=== PATIENT | male | born 1960 | race Caucasian/White ===

== ENCOUNTER → 2021-02-13 09:33 | Outpatient (CLI) | payer OTHER, SELFPAY ==
[2021-02-13 10:33] LABS: Add Manual Diff / Slide Review NO; Basophils Absolute Auto 100 /uL (0-100); Basophils Percent Auto 0.9 % (0-2); Eosinophils Absolute Auto 200 /uL (0-450); Hemoglobin 14.6 g/dL (13.5-17.5); Lymphocytes Absolute Auto 1800 /uL (1100-4500); Lymphocytes Percent Auto 31.1 % (25-40); Mean Corpuscular HGB Conc 33.9 % (30-36); Mean Corpuscular Hemoglobin 31.4 PG (26-34); Mean Corpuscular Volume 92.5 fL (80-100); Monocytes Absolute Auto 500 /uL (0-900); Monocytes Percent Auto 9.4 % (3-14); Neutrophils Absolute Auto 3100 /uL (1500-7000); Neutrophils Percent Auto 55.6 % (50-75); Platelet Count 234 X10^3/uL (150-400); Red Blood Cell Count 4.65 X10^6/uL (4.5-5.9); Red Cell Distribution Width 13.9 % (11.6-14.8); White Blood Cell Count 5.7 X10^3/uL (4.5-11.0)
[2021-02-13 11:49] LABS: Blood Urea Nitrogen 16 mg/dL (9-20); Calcium 9.5 mg/dL (8.4-10.2); Carbon Dioxide 26 mmol/L (22-32); Chloride 104 mmol/L (98-107); Estimated Glomerular Filt Rate > 60.0 mL/min (>60); Glucose 100 mg/dL (80-110); HEMOLYSIS < 15 (0-50); Potassium 4.4 mmol/L (3.4-5.1); Sodium 137 mmol/L (137-145)
== END ==
PROVIDERS: PCP Family Medicine; Referring Provider Orthopaedic Surgery Orthopaedic Surgery of the Spine; Visit Provider Orthopaedic Surgery Orthopaedic Surgery of the Spine
DX: Z01.818 Encounter for other preprocedural examination (principal); Z01.812 Encounter for preprocedural laboratory examination
CPT/HCPCS: 36415; 80048; 85025; 93005; 93010

== ENCOUNTER → 2021-03-01 11:16 | Outpatient (CLI) | payer OTHER, SELFPAY ==
[2021-03-01 14:05] LABS: COVID19 -Nasal RAPID Negative (Negative)
== END ==
PROVIDERS: PCP Family Medicine; Visit Provider Physician Assistant
DX: Z20.822 Contact with and (suspected) exposure to COVID-19 (principal)
CPT/HCPCS: 87635

== ENCOUNTER 2021-03-03 11:33 | Day surgery (SDC) | payer OTHER, SELFPAY ==
[2021-02-23 08:36] VITALS: BMI 28.8
[2021-03-03] VITALS (14 sets, daily range): BP systolic 127–158; BP diastolic 86–110; PULSE 89–117; RESP 9–18; TEMP 36.2–37.1; O2SAT 93–99; BMI 28.8
[2021-03-03] MEDS: LACTATED RINGERS 1,000 ML 42 ML IV ×2 (12:51→16:44)
--- NOTE | 2021-03-03 14:14 | PM.PREOP ---
Pre-operative Note COVID-19 COVID-19 status: Negative Result date/Date tested (Pos, Neg/Pending): 03/01/21 Interval Note History & Physical reviewed/Exam performed by Physician: Yes Changes to H&P: No
[2021-03-03] MEDS: CEFAZOLIN 1 GM VIAL 2 GM IV ×2 (15:15→23:45)
--- NOTE | 2021-03-03 15:32 | SUR.OPER ---
Prone on spine table, head in foam head support, padded chest and pelvic supports, gel pad at knees, lower legs supported by pillows; nipples, genitalia and toes free of pressure, arms secured on foam padded arm boards at <90 degrees abduction. Tape over blanket at thigh secured to table.
[2021-03-03] MEDS: BUPIVACAINE LIPOSOME 266 MG/20 ML VIAL INJ (15:52)
[2021-03-03] MEDS: BUPIVACAINE 0.25% (PF) VIAL 30 ML INJ (15:53)
[2021-03-03] MEDS: EPINEPHrine 1 MG/ML SUBCUT (15:54)
--- NOTE | 2021-03-03 18:17 | DI.RAD.S_ITS ---
PROCEDURE: XR LUMBAR SPINE 2-3V INDICATIONS: L3-4 TLIF TECHNIQUE: 2 intraoperative fluoroscopic spot films were obtained COMPARISON: None. FINDINGS: Low resolution intraoperative spot films show L3-4 interbody cage graft and associated posterior stephen and screw instrumentation in good position. IMPRESSION: Fluoroscopic guidance Approved by: Bandar Shen M.D. on 03/03/2021 at 17:25
--- NOTE | 2021-03-03 18:27 | P.OP_ITS ---
Operative Date/Time/Diagnoses Date of procedure: 03/03/21 Time of procedure: 15:00 Pre-op diagnosis: 1. L3-4 spinal stenosis with neurogenic claudication 2. L3-4 spondylosis with radiculopathy Post-op diagnosis: same Procedure & Clinicians Procedure: 1. L3-4 Postero-lateral and posterior interbody fusion 2. L3-4 interbody cage placement. 3. L3-4 decompressive laminectomy with bilateral facetecomies 4. L3-4 Posterior non-segmental instrumentation 5. [place] of bone marrow from iliac crest 6. Utilization of microsurgical technique and surgical loupes Same procedure as scheduled: Yes Indications: Patient has been having chronic back pain and worsening lumbar radiculopathy. Patient failed multiple conservative management with worsening pain weakness and numbness in her lower extremity. Patient has been having difficulty performing activity of daily living. After discussing risks benefits of treatment options, patient elected proceed with surgery. Surgeon: Jose Lopez [employer] Tester: Kirill Egan Click Yes if Unassisted: No Anesthesia Type: General Operative Notes Closure Type: primary Specimen(s): none sent Prosthetic devices, grafts, tissues, transplants, or devices: Globus revolve screws, Rise cage Estimated Blood Loss (mL): 100 Blood products transfused: none Procedure in detail: Patient was seen in the preoperative area. Risks and benefits of the surgery was discussed with the patient. Informed consent was obt ained from the patient and placed in the chart. Surgical site was marked. Patient was taken to the operative room. General anesthesia was administered. Prophylactic antibiotic was given to the patient less than 30 min before the incision was made. Patient was placed into a prone position on the Terrence table. Patient's back was then prepped and draped in the sterile fashion. Time- out was performed at this time. Using AP and lateral C-arm imaging the interval between L3-4 was identified and marked on patient's back. A 2 inch incision 2 in from midline was made on the right side first. The fascia was incised in line with skin incision. Globus MARS retractors was placed inside the incision and docked onto the L3 lamina. Using microsurgical technique and surgical loupes, a L3 laminectomy and L3-4 facetectomy was performed using a Kerrison rongeur. The disc space at L3-4 was identified. Patient was found to have large osteophytes causing central and foraminal stenosis which was fully decompressed after the laminectomy and facetectomy was completed. The decompression rendered the L3-4 level grossly unstable and required a fusion procedure at the same time. And a total diskectomy was performed at L3-4 level. The endplates were decorticated using a rasp and shaver. The total diskectomy and decortication was performed at L3-4 level in order to to accomplish a L3-4 fusion. The local bone from the laminectomy and facetectomy was saved for local bone grafting. After the total diskectomy and decortication was completed, Trifecta bone graft material was combined with local bone that was harvested earlier. At this time, a separate skin is incision was made over the iliac crest. A Jamshidi needle was inserted into the iliac crest through a separate skin incision. 5 cc of bone marrow aspiration was obtained through the separate skin incision using a Jamshidi needle from the iliac crest. The bone marrow aspiration was combined with local bone and the Trifecta bone grafting material. The bone grafting material was placed into the L3-4 interbody space along with a expandable cage. The cage was expanded to its maximum height using the torque limiting screwdriver. At this time a mirror image incision was made on the left side. The fascia was incised in line with the skin incision. Globus MARS retractor was inserted and docked onto the L3-4 posterolateral gutter. Using the power drill, posterior- lateral decortication was performed at L3-4 level until bleeding cortical bone was identified. The remaining bone grafting material was placed into the L3-4 posterior lateral gutter he order to accomplish posterolateral fusion at the L3-4 level. Using the double C-arm technique, pedicle screws were placed into the L3-4 pedicles bilaterally. This was done by placing the Jamshidi needle into the pedicles, then placing the guidewires over the Jamshidi needle, and finally placing the cannulated screws over the guidewires bilaterally. After the pedicle screws were placed, 2 titanium rods was locked into the heads of the pedicle screws using locking caps and torque limiting screwdriver. After all the hardware was placed, and confirmed with AP and lateral C-arm imaging, the wound was then irrigated with sterile normal saline and packed with Ray-Vianney gauze for 3 min to accomplish hemostasis. After the gauze was removed the deep fascia was closed with #1 Vicryl suture. The subcutaneous layer was closed with 2-0 Vicryl. The skin was closed with skin tia. Patient tolerated the procedure well. There were no complications. Complications: none Post-operative Condition: stable Disposition: PACU Plan for aftercare: Admit to inpatient hospital
[2021-03-03] MEDS: HYDROMORPHONE 2 MG INJ IV ×2 (18:44→18:58)
[2021-03-03] MEDS: OXYCODONE IR 5 MG TABLET PO (19:07)
--- NOTE | 2021-03-03 20:12 | SUR.PHASEI ---
Pt arrived to PACU airway self maintained, )2 2/l nasal cannula placed on pt. Pt hypertensive and tachycardic, Dr. Lackey medicated pt with labetalol and some propofol, BP and HR down to baseline admit VS. Pt tolerated ice chips and applesauce with no nausea. Pt medicated with hydromorphone and oxycodone. Pt transported up to room 217 on 2/l nasal cannula, pt left with Lisa in stable condition. Bed low, locked and SCD's on. Dressing to back c/d/i.
[2021-03-03] MEDS: SODIUM CHLORIDE 0.9% 1,000 ML 100 ML IV (21:20)
[2021-03-03] MEDS: SENNOSIDES 8.6 MG TABLET 17.2 MG PO (21:21)
[2021-03-03] MEDS: DOCUSATE 100 MG CAPSULE PO (21:21)
--- NOTE | 2021-03-04 00:48 | PC.NURSE ---
Patient refusing majority of assessment. Patient refusing education on reasoning and importance of assessment after major surgery. Will continue to monitor.
[2021-03-04 05:19] VITALS: BP 154/101; PULSE 95; RESP 18; TEMP 36.3; O2SAT 100
[2021-03-04] MEDS: OXYCODONE IR 5 MG TABLET 10 MG PO (05:23)
[2021-03-04] MEDS: ACETAMINOPHEN 325 MG TABLET 650 MG PO (05:23)
[2021-03-04 07:05] LABS: Hemoglobin 14.5 g/dL (13.5-17.5)
[2021-03-04] MEDS: DOCUSATE 100 MG CAPSULE PO (07:59)
[2021-03-04] MEDS: CEFAZOLIN 1 GM VIAL 2 GM IV (07:59)
[2021-03-04 08:12] VITALS: BP 132/100; PULSE 95; RESP 18; TEMP 36.4; O2SAT 99
--- NOTE | 2021-03-04 09:35 | OT.IP.EVAL ---
Current Diagnoses Spondylolisthesis, lumbar region (03/03/21) Spinal stenosis, lumbar region without neurogenic claudication (03/03/21) Surgery Performed Operation Date: 03/03/21 13:15 Actual Procedures p L3-4 TLIF - Jose Lopez MD Past Medical History (Last Updated 02/23/21 @ 09:09 by Alisa Urena, RN) Borderline high cholesterol High blood pressure Hx of bursectomy (~2004) Hx of tonsillectomy Sciatica Sinus drainage (2003) Spinal stenosis Spondylolisthesis Surgical History (Last Updated 02/23/21 @ 09:09 by Alisa Urena RN) Hx of bursectomy (~2004) Hx of tonsillectomy Occupational Therapy Inpatient Evaluation/Re-Eval M1 PT/OT-IP Prior Functional Status Start: 03/04/21 10:03 Freq: NEEDED Status: Active Protocol: Document 03/04/21 10:03 [facility] (Rec: 03/04/21 10:26 [facility] [id number]) Medical Review Prior Functional Status Medical History Reviewed Yes Communication Independent. Mobility and Gait Pt states independent with mobility and did not use a device. Activities of Daily Living and IADL's Pt states would take him longer to do ADL and IADl needs due to his back pain. Social History Household Members spouse Living Arrangements House Number of Floors (Floors) 3 or More Floors Number of Stairs To Enter/Railing? Pt has a threshold to get into his house and able to stay on the main level. 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 M2 OT-IP Current Condition Start: 03/04/21 10:03 Freq: Status: Active Protocol: Document 03/04/21 10:03 [facility] (Rec: 03/04/21 10:26 [facility] [id number]) Occupational Therapy Current Condition Current Condition Evaluation Date 03/04/21 Treatment Diagnosis S/P L3-4 TLIF Diagnosis Onset Date 03/03/21 Post Operative Precautions Lumbar Precautions Log Roll,No Twisting,Limit Bending,Lifting Restriction of 10 lbs,Gait Belt above Incisional Area M3 OT- IP Subjective and Pain Start: 03/04/21 10:03 Freq: Status: Active Protocol: Document 03/04/21 10:03 [facility] (Rec: 03/04/21 10:26 [facility] [id number]) OT- Subjective Occupational Therapy Visit Type Type Initial Evaluation Visit Start Time 08:50 Visit Stop Time 09:35 Total Visit Minutes 45 Occupational Therapy Visit Comments Patient Comments Pt willing to get up for OT eval. Patient/Caregiver Goals To go home so able to be home from his birthday tomorrow. OT Pain Assessment Pain When Pain Assessed At Rest Pain Present Pain Present Denied Pain M4 OT- IP ADL's Start: 03/04/21 10:03 Freq: Status: Active Protocol: Document 03/04/21 10:03 [facility] (Rec: 03/04/21 10:26 [facility] [id number]) OT XDA-Vpuv-Soaumtn Comments OT Self-Feeding Comments Pt having no appetite at this time. OT ADL-Grooming Comments OT Grooming Comments Pt did not want to perform at this time. OT ADL-Oral Care Comments Oral Care Comments Not performed. OT ADL-Dressing General Eval Lower Body Dressing Ability Moderate Assistance Comments OT Dressing Comments Able to show pt use of income tax auditor and sock aid to assist to do his LB dressing needs more independently. Pt has a wide foot and therefore would need a wider sock aid. Pt states that at this time just will have his assist with his needs. OT ADL-Toileting Comments OT Toileting Comments Pt not having to use the toilet at this time. Pending on how pt is moving, educated to lean over to the side to wipe or stand with FWW. OT ADL-Bathing Comments OT Bathing Comments Not performed. Suggested may beneficial to get a shower chair for home use. M5 OT- IP IADL's Start: 03/04/21 10:03 Freq: Status: Active Protocol: Document 03/04/21 10:03 [facility] (Rec: 03/04/21 10:26 [facility] [id number]) OT-Instrumental Activities of Daily Living Home Safety Awareness Awareness of Need for Assistance at Home Good Awareness Ability to Problem Solve Emergency Able to Problem Solve Situations Medication Management Medication Management Comments Pt a bit groggy and states will be able to assist pt for all needs as needed. Money Management Money Management Comments Pt a bit groggy and states will be able to assist pt for all needs as needed. Meal Preparation Meal Preparation Comments Pt a bit groggy and states will be able to assist pt for all needs as needed. Superintendent Terminal Superintendent Terminal Comments Pt a bit groggy and states will be able to assist pt for all needs as needed. M6 OT- IP Functional Cognition Start: 03/04/21 10:03 Freq: Status: Active Protocol: Document 03/04/21 10:03 [facility] (Rec: 03/04/21 10:26 [facility] [id number]) Cognitive Factors Limiting Selfcare Function Cognitive Ability Level of Alertness Alert Patient Orientation Name,Age,Birthday,Month,Date, Year,Day of Week,Place, Situation Attention Span Ability Capable of Focused Attention, Capable of Sustained Attention Ability to Follow Commands Able to Follow One Step Commands Safety Awareness Decreased Ability to Apply Precautions,Underestimates Need for Assistance Cognitive Comments Cognitive Assessment Comments Pt a bit impulsive and needing cues to slow down. Pt needing cues to follow his back precautions and for new learning of log rolling for bed mobility needs. Initially pt trying to sit up into long sitting while trying to get out of bed. Emphasized to pt to do log rolling instead which would be better on putting less pressure on his back. OT- Vision and Hearing OT- Hearing Assessment OT- Hearing Assessment WFL OT- Vision Assessment Visual Acuity Glasses For Reading M7 OT- IP Mobility and Balance Start: 03/04/21 10:03 Freq: Status: Active Protocol: Document 03/04/21 10:03 [facility] (Rec: 03/04/21 10:26 [facility] [id number]) OT- Bed Mobility Assessment Rolling Type of Rolling Roll to Left Level of Assistance Standby Assistance Supine to Sit Supine to Sit Assist Standby Assistance Sit to Supine Sit to Supine Assist Minimal Assistance OT-Transfer Assessment Comments Mobility Comments Pt supine BP 162/107, sitting 172/107, after sitting for a few minutes 168/106, and after back in bed 160/115 and after 10 minutes BP in supine 148/ 110. Able to notify nurse and also spoke to the Dr. Torres who was just coming in to check on the pt. OT- Gait Assessment Comments Gait Ability Comments Not at this time due to high BP. OT- Balance Assessment Sitting Balance and Reactions Static Sitting Balance Ability Normal Dynamic Sitting Balance Ability Good M8 OT- IP Objective Assessments Start: 03/04/21 10:03 Freq: Status: Active Protocol: Document 03/04/21 10:03 [facility] (Rec: 03/04/21 10:26 [facility] [id number]) OT Gross Range of Motion Upper Extremity Range of Motion Assessment Within Functional Limits OT Strength Upper Extremity Strength Assessment Within Functional Limits OT-Muscle Tone Assessment Muscle Tone WNL Yes M9 OT- IP Assessment and Plan Start: 03/04/21 10:03 Freq: Status: Active Protocol: Document 03/04/21 10:03 [facility] (Rec: 03/04/21 10:26 [facility] [id number]) OT Summary Assessment and Plan Potential Rehabilitation Potential Good Analytic Complexity at Evaluation Moderate Summary OT Impairments Pain,Functional Mobility, Dressing,Toileting,Bathing, Toilet Transfers,Shower Transfers,Activity Tolerance Progress Towards Goals Slow Progress due to Pain,Slow Progress due to Medical Issues Assessment Summary Pt MOD complexity and main barriers are high BP, not feeling well per pt due to pain medications, and needing safety cues to follow his back precautions. Pt was able to do bed mobility to get out of the bed on his own after education to get out of the bed and then needing MODA to help get back into bed. Nursing notified of high BP. Pending medical status and possible caregiver training with pt to go home versus skilled rehab. Goals Grooming Goal Independent Dressing Goal Independent Toileting Goal Independent Bathing Goal Independent Toilet Transfer Goal Independent Shower Transfer Goal Independent Patient/Caregiver Education Goal Demonstrate Post-Op Precautions,Caregiver Independent Assisting Patient Days to Meet Goals 7 Frequency of Treatment Frequency Of Treatment Once a Day Treatment Plan OT Treatment Plan ADL Training,Functional Cognition Training,Functional Mobility,Patient/Family Education,Discharge Planning Other Treatment Recommendations and Next Shower if appropriate and Treatment Focus caregiver training Discharge Recommendations OT Discharge Recommendations Home with Assistance,SNF Rehab ,Home vs SNF Other Discharge Recommendations Pending medical status and caregiver training. Most likely home with assist versus SNF. Home Equipment Needs Shower chair Transportation Needs at Discharge Wheelchair/Cabulance
--- NOTE | 2021-03-04 10:10 | P.PN_ITS ---
Subjective Subjective Date Patient Seen: 03/04/21 Time Patient Seen: 10:11 Interval history: The patient reports he is having some discomfort as expected postoperatively. He very much wants to go home. He is hypertensive at baseline but typically does not run blood pressures as high as he has been running in the hospital. Exam Vital Signs (past 8 hours): - 03/04/21 05:19 03/04/21 08:12 Temperature 97.4 F L 97.6 F Pulse Rate 95 H 95 H Respiratory Rate 18 18 Blood Pressure 154/101 H 132/100 H Pulse Oximetry 100 99 Oxygen Delivery Method Nasal Cannula Oxygen Flow Rate 0 Narrative Exam Narrative: Lying comfortably in bed. Light touch and motion intact in both lower extremities. Calves soft. Objective Labs Result Diagrams: 03/04/21 06:47 Labs: Laboratory Results - last 24 hr 03/04/21 06:47 Hgb 14.5 Hct 44.0 PFSH Medical History (Updated 02/23/21 @ 09:09 by Alisa Urena RN) Borderline high cholesterol High blood pressure Sciatica Sinus drainage (2003) Spinal stenosis Spondylolisthesis Surgical History (Updated 02/23/21 @ 09:09 by Alisa Urena RN) Hx of bursectomy (~2004) Hx of tonsillectomy Social History household members: spouse Smoking Status: Former smoker alcohol intake: current Assessment & Plan Post-op Postoperative Procedures: Procedures Operation Date: 03/03/21 13:15 Actual Procedure Side Surgeon p L3-4 TLIF Jose Lopez MD Postoperative day: 1 Postoperative status: doing well and other (Persistent hypertension) Postoperative status narrative: Stable postoperative day 1 status post L3-L4 fus ion by Dr. Lopez with the exception of persistent hypertension. Postoperative plan: routine post-op care and other (Will consult hospitalist for hypertension) Quality VTE Deep Vein Thrombosis/Pulmonary Embolism Present on Admission: No
--- NOTE | 2021-03-04 10:18 | PT.IIE ---
Current Diagnoses Spondylolisthesis, lumbar region (03/03/21) Spinal stenosis, lumbar region without neurogenic claudication (03/03/21) Surgery Performed Operation Date: 03/03/21 13:15 Actual Procedures p L3-4 TLIF - Jose oLpez MD Medical History (Last Updated 02/23/21 @ 09:09 by Alisa Urena RN) Borderline high cholesterol High blood pressure Sciatica Sinus drainage (2003) Spinal stenosis Spondylolisthesis Physical Therapy Inpatient Evaluation/Re-Eval M1 PT/OT-IP Prior Functional Status Start: 03/04/21 10:03 Freq: NEEDED Status: Active Protocol: Document 03/04/21 10:18 AB (Rec: 03/04/21 12:04 AB [id number]) Medical Review Prior Functional Status Medical History Reviewed Yes Communication able to make needs known Mobility and Gait pt stated that he is independent with all mobilities and ambulation without AD Social History Household Members spouse Living Arrangements House Number of Floors (Floors) Two Floors Number of Stairs To Enter/Railing? pt stays on main level of the house no steps to enter Home Environment Standard Height Toilet,Walk in Shower Home Equipment Front Wheel Walker,Hand Held Shower Employment Status Retired M2 PT-IP Current Condition Start: 03/04/21 11:51 Freq: NEEDED Status: Active Protocol: Document 03/04/21 10:18 AB (Rec: 03/04/21 12:04 AB [id number]) Physical Therapy Current Condition Current Condition Evaluation Date 03/04/21 Treatment Diagnosis s/p L3-4 fusion/lami; difficulty in walking Onset Date 03/03/21 Precautions Lumbar Precautions Log Roll,No Twisting,Limit Bending,Lifting Restriction of 10 lbs,Gait Belt above Incisional Area M3 PT-IP Subjective Start: 03/04/21 11:51 Freq: NEEDED Status: Active Protocol: Document 03/04/21 10:18 AB (Rec: 03/04/21 12:04 AB [id number]) Subjective Physical Therapy Visit Type Type Initial Evaluation Visit Start Time 10:18 Visit Stop Time 11:05 Total Visit Minutes 37 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 of 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 0 Physical Therapy Visit Comments Patient Comments c/o nausea but agreed to do PT Therapy Pain Assessment Pain When Pain Assessed At Rest Pain Present Pain Present Pain Reported Location back Intensity 3 Scale Used Numeric (0 - 10) Pain Management Techniques Modification of Treatment,Re- positioning,Timing of Activity with Medications M4 PT-IP Mobility and Gait Start: 03/04/21 11:51 Freq: NEEDED Status: Active Protocol: Document 03/04/21 10:18 AB (Rec: 03/04/21 12:04 AB [id number]) PT-Bed Mobility Assessment Rolling Type of Rolling Log Rolling Level of Assist Standby Assistance Supine to Sit Supine to Sit Standby Assistance PT-Transfer Assessment Sit to and From Stand Sit to and from Stand Standby Assistance,1 Person Assistance,Use of Upper Extremities Equipment Transfer Assistive Device Gait Belt,Front Wheeled Walker Orthotic/Prosthetic Devices or Brace: No Transfers Transfer Destination Chair,Toilet Transfer Technique ambulated using FWW Transfer Ability Level of Assist Standby Assistance,Use of Upper Extremities Comments Mobility Comments reviewed back precautions and log roll. BP supine: 155/108. informed nurse and stated that the hospitalist will see the pt for high BP. pt initially c/o nausea but wanting to try to sit on EOB. Dr. Owens came in to see the pt. Checked back on pt. BP checked again: 155/90. pt completed log roll supine to sit SBA. pt was able to sit on EOB SBA. no c/o nausea or dizziness. BP: 158/113. completed sit to stand SBA and ambulated in room using FWW SBA ~ 60 ft. no complaints of dizziness/nausea. agreed to sit on chair. but pt requested to use the toilet. completed sit to stand from chair SBA and ambulated to the toilet using FWW SBA. pt stated that he needs to use the toilet for a while. call light positioned next to pt and instructed. pt has no other concerns. informed nurse that pt is using the toilet and will ask for assistance when ready. Gait Assessment Gait Gait Assistance Required: Standby Assistance Distance (Feet) 60 Able to Maintain Weight Bearing Status Yes During Gait Assistive Devices Assistive Device Gait Belt,Front Wheeled Walker Orthotic/Prosthetic Devices or Brace: No Gait Deviations General Gait Pattern Decreased Stride Length, Decreased Feet Clearance Factors Limiting Gait Function Factors Limiting Gait Function Decreased Activity Tolerance, Decreased Strength,Limited Range of Motion,Pain,Poor Balance PT-Balance Assessment Sitting Balance and Reactions Static Sitting Balance Ability Normal Dynamic Sitting Balance Ability Good Standing Balance and Reactions Static Standing Balance Ability Good Dynamic Standing Balance Ability Fair Device Used FWW M5 PT-IP Objective Assessments Start: 03/04/21 11:51 Freq: NEEDED Status: Active Protocol: Document 03/04/21 10:18 AB (Rec: 03/04/21 12:04 AB [id number]) Orientation Orientation/Cognition Level of Alertness Alert Orientation Name,Age,Birthday,Month,Date, Year,Day of Week,Place, Situation Language Function Ability No Deficits Noted Safety Awareness Decreased Safety Awareness Memory Description No Deficits Noted Gross Range of Motion Lower Extremity ROM Assessment Within Functional Limits Strength Lower Extremity Strength Assessment Within Functional Limits Coordination Assessment Gross Coordination Gross Coordination WNL Sensation Assessment Sensation Gross Sensation WNL Muscle Tone Muscle Tone WNL Yes M6 PT-IP Treatment Start: 03/04/21 11:51 Freq: NEEDED Status: Active Protocol: Document 03/04/21 10:18 AB (Rec: 03/04/21 12:04 AB [id number]) Physical Therapy Treatment Education Education Provided Precautions,Weight Bearing Status,Post-Op Packet,Safety M7 PT-IP Assessment and Plan Start: 03/04/21 11:51 Freq: NEEDED Status: Active Protocol: Document 03/04/21 10:18 AB (Rec: 03/04/21 12:04 AB [email or web address]) PT Summary Assessment and Plan Potential Rehabilitation Potential Good Status of Condition at Evaluation Evolving Summary Impairments Pain,ROM,Strength,Balance, Coordination,Sensation,Tone, Cognition,Bed Mobility, Transfers,Gait,Activity Tolerance Assessment Summary pt requiring SBA with mobility using FWW and will have his spouse to assist him at home as needed. pt may go home when medically stable. Goals Bed Mobility Goal Independent Transfer Goal Independent,Four Wheeled Walker Gait Goal Independent,Front Wheel Walker Gait Distance 200 Days to Meet Goals 5 Frequency of Treatment Frequency Of Treatment Twice a Day Treatment Plan Physical Therapy Treatment Plan Bed Mobility Training,Transfer Training,Gait Training, Therapeutic Exercise,Balance Retraining,Post Op Education, Discharge Planning,Hot or Cold Pack,Neuromuscular Re-ed, Coordination Retraining,Manual Therapy Precautions Lumbar Precautions Log Roll,No Twisting,Limit Bending,Lifting Restriction of 10 lbs,Gait Belt above Incisional Area Recommendations To Nursing Amount of Assist Needed Standby Assistance Discharge Recommendations PT Discharge Recommendations Home with Assistance Transportation Needs at Discharge Private Vehicle
--- NOTE | 2021-03-04 10:23 | CM.DANOTE ---
DCP: Case received, EMR reviewed and met with patient. , Agatha, was also at bedside. Introduced self and role. Was able to obtain information regarding patient's baseline activity status prior to his surgery. DCP assessment completed with information currently available. Patient is a 60 year old male who admitted yesterday morning to the care of the orthopedic team. PCP: Dr. Gandara. Payer: confirmed: [facility]. Patient came in to the hospital for a surgical procedure. He had L3-4 postero-lateral & posterior interbody fusion. Patient has had history of spinal stenosis. 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 Met with patient and spouse, Agatha. Patient had worked with [employer], and had noted an increase in his BP. Hospitalist may be consulted. Patient is alert and oriented, independent. He has not used any DME supplies prior to his surgery, stated, just had to walk slowly. He has still been driving. Confirmed with , Agatha, that she will be able to assist him when he goes home. Patient is hopeful to be able to go home on his birthday, which is tomorrow. P: DCP to continue to follow, and will be available for any resources needed. Patient should be able to go home when he is deemed medically stable and cleared by P.[facility]. Amina Fleming RN/Drug Abuse Social Worker
--- NOTE | 2021-03-04 10:54 | P.DS_ITS ---
History of Present Illness History of Present Illness Date Patient Seen: 03/04/21 Time Patient Seen: 10:55 Chief complaint: OPB Narrative: The history and physical is contained in the chart previously completed note. Please refer to that note for this information. Discharge Providers Provider Date of admission: March 03, 2021 Discharge Date: 03/04/21 Primary care physician: Robert Gandara MD Consults: 03/03/21 19:52 Consult to Occupational Therapy Evaluate & Treat Comment: Physician Instructions: Evaluate and treat Consult to Physical Therapy Evaluate & Treat Comment: Physician Instructions: Evaluate and Treat Discharge provider: Rj Gupta MD Summary Hospital Course Discharge Diagnosis: 1. Lumbar stenosis 2. Hypertension Hospital Course: The patient was admitted to the hospital and taken directly to the operating room on March 03, 2021. He underwent a fusion at L3-4 without specific issues. He had moderately significant hypertension throughout his postoperative course. A consultation was obtained by the hospitalist and he was started on lisinopril. On postoperative day 1 at the time of this dictation it is likely he will be able to go home after physical therapy. Status at Discharge Cognitive/behavioral status at discharge: oriented Functional status at discharge: independent ambulation Overall status at discharge: patient is progressing back to baseline Time Spent with Patient Time spent: Greater than 30 minutes Exam Vital Signs (past 8 hours): - 03/04/21 05:19 03/04/21 08:12 Temperature 97.4 F L 97.6 F Pulse Rate 95 H 95 H Respiratory Rate 18 18 Blood Pressure 154/101 H 132/100 H Pulse Oximetry 100 99 Oxygen Delivery Method Nasal Cannula Oxygen Flow Rate 0 Narrative Exam Narrative: Lumbar spine wound is dressed with no significant drainage on the bandage. Light touch and motion are intact in both lower extremities. Calves are soft. Objective Labs Result Diagrams: 03/04/21 06:47 Labs: Laboratory Results - last 24 hr 03/04/21 06:47 Hgb 14.5 Hct 44.0 PFSH Medical History (Updated 02/23/21 @ 09:09 by Alisa Urena RN) Borderline high cholesterol High blood pressure Sciatica Sinus drainage (2003) Spinal stenosis Spondylolisthesis Surgical History (Updated 02/23/21 @ 09:09 by Alisa Urena RN) Hx of bursectomy (~2004) Hx of tonsillectomy Social History household members: spouse Smoking Status: Former smoker alcohol intake: current Discharge Assessment & Plan Assessment and Plan Assessment: Stable postoperative day 1 status post lumbar fusion with the exception of hypertension. He has been evaluated by the hospitalist for this. He was under evaluation by his primary care previous to surgery but had elected not to start treatment. He is now on lisinopril. Plan of Treatment: Discharge to home. He has been given discharge prescriptions for lisinopril, [place], hydroxyzine and we have recommended Tylenol for less severe pain. He will follow up with Dr. Lopez as scheduled in 10-14 days. Discharge Plan Discharge Plan Patient Disposition: Home Discharge orders & Medications Discharge Orders: Discharge (Order); Ordered 03/04/21 Ordered By: Rj Gupta Prescriptions: New lisinopril 5 mg Tablet 5 mg PO DAILY Qty: 30 RF: 0 acetaminophen 325 mg Tablet 650 mg PO Q6HR PRN (Reason: Pain, Mild (1-3)) 30 Days RF: 0 hydrocodone-acetaminophen 5-325 mg Tablet 1 tab PO Q4HR PRN (Reason: Pain, Moderate (4-6)) Qty: 30 RF: 0 hydroxyzine pamoate 25 mg Capsule 25 mg PO Q4HR PRN (Reason: Nausea And Vomiting) Qty: 30 RF: 0 Follow up/Referrals: Jose Lopez MD [Physician] - 2 Weeks Robert Gandara MD [Primary Care Provider] - Diet/Activity/Treatments Diet: Diet as Tolerated and Regular Activity: You may walk as tolerated. Lift no more than 5-10 lb. Avoid bending and stooping. Cold/Heat Therapy: You may apply ice to the surgical site for 15 minutes every hour as needed for pain control. Skin/Wound/Dressing Care Report to your healthcare provider any signs of infection, such as:: chills, fever, night sweats, increased pain, unusual drainage and unusual redness Dressing: Keep the dressing clean and dry. Visit Report/Discharge Packet Instructions: DI for Transforaminal Lumbar Interbody Fusion Stand Alone Forms: Surgery Discharge Discharge Data Primary Care Provider: Robert Gandara Attending Provider: Jose Lopez Quality VTE Deep Vein Thrombosis/Pulmonary Embolism Present on Admission: No
[2021-03-04] MEDS: lisinopriL 5 MG TABLET PO (10:56)
[2021-03-04 12:45] VITALS: BP 145/90; PULSE 90; RESP 18; TEMP 36.6; O2SAT 99
--- NOTE | 2021-03-04 13:25 | PC.NURSE ---
Pending d/c: Pt wanting to go home this am. However bp has been elevated, When he got up with PT he became dizzy and whoosy, he feels this is from the pain medication he took this am. made aware of bp elevations. 172/107 and then up to 160/115. (See PT documentation) After resting he did get up with PT again and was able to pass his PT eval. Dr. Gupta made aware of BP elevation and consult was done with the hospitalist. Pt given dose of lisinopril. He tolerated med with out diff, last bp 145/95. He feels he will be fine to go home. had been here earlier and left, she was called and she feels comfortable taking him home. Dressing to low back was changed to a cover site. Bilat incisions are stapled, minimal redness, no drainage, wound edges approx. Questions answered.
--- NOTE | 2021-03-04 14:19 | PM.CN ---
History of Present Illness Consult details Date Patient Seen: 03/04/21 Time Patient Seen: 11:00 Chief complaint: OPB Narrative: Mr. Reeves is a 60M with PMH HTN, not on medications, L3-L4 spinal stenosis who underwent laminectomy. I was asked to consult as patient has been hypertensive. The patient states he has long had hypertension, primarily elevated blood pressures in the morning, but then they decrease in the evening. He has discussed with his PCP in the past about starting medications, but he prefers to avoid being on any medications if possible. Here in the hospital he has had blood pressures as high as 150s/100s. No chest pain, no shortness of breath. He has had some post-operative pain. Otherwise he is feeling well and wants to go home. FH: Father with DM Meds Home Medications and Allergies Home Medications Medication Instructions Recorded Confirmed Type acetaminophen 325 mg tablet 650 mg PO Q6HR PRN 30 Days tab 03/04/21 Rx hydrocodone 5 mg-acetaminophen 325 1 tab PO Q4HR PRN #30 tab 03/04/21 Rx mg tablet hydroxyzine pamoate 25 mg capsule 25 mg PO Q4HR PRN #30 cap 03/04/21 Rx lisinopril 5 mg tablet 5 mg PO DAILY #30 tab 03/04/21 Rx Allergies Allergy/AdvReac Type Severity Reaction Status Date / Time No Known Drug Allergies Allergy Verified 03/03/21 12:47 Review of Systems Review of Systems Narrative: 14 systems reviewed and negative aside from HPI Exam Vital Signs (past 8 hours): - 03/04/21 08:12 03/04/21 12:45 Temperature 97.6 F 97.8 F Pulse Rate 95 H 90 Respiratory Rate 18 18 Blood Pressure 132/100 H 145/90 H Pulse Oximetry 99 99 Oxygen Delivery Method Room Air Oxygen Flow Rate 0 Narrative Exam Narrative: GEN: no acute distress HEENT: moist mucous membranes, PERRL NECK: no JVD, trachea midilne CV: regular rate and rhythm with no murmurs PULM: clear bilaterally, no wheezes, rhonchi, rales ABD: soft, nontender, nondistended, no organomegaly, no rebound/guarding EXT: warm and well perfused with no edema NEURO: awake, alert, oriented, no focal deficits SKIN: no rashes noted Objective Labs Result Diagrams: 03/04/21 06:47 Labs: Laboratory Results - last 24 hr 03/04/21 06:47 Hgb 14.5 Hct 44.0 PFSH Medical History Borderline high cholesterol High blood pressure Sciatica Sinus drainage (2003) Spinal stenosis Spondylolisthesis Surgical History Hx of bursectomy (~2004) Hx of tonsillectomy Social History household members: spouse Tobacco & Substance Use Smoking Status: Former smoker alcohol intake: current Assessment & Plan Assessment & Plan narrative: Mr. Reeves is a 60M with PMH HTN, POD #1 from laminectomy for L3-L4 stenosis who has been having elevated blood pressure in hospital. 1. Hypertension -patient chronically has hypertension, possibly worsened in setting of discomfort after surgery -however does already have indication for being on medication chronically -patient agreed to take anti-hypertensives -will start lisinopril 5mg daily -patient to record blood pressures and follow up with PCP -script given for 30 days of lisinopril Patient can be discharged safely from a medical standpoint. Defer final decision to discharge to surgical team. CODE: Full Proxy: Agatha Reeves, spouse I have utilized all available immediate resources to obtain, update, or review the patient's current medications. Time Spent With Patient Critical Care time: I spent a total of [] minutes of critical care time on this patient's care today; this time is exclusive of procedural time.
== END 2021-03-04 14:50 | disposition home or self-care (01) ==
LOC: OR 11:35 → AC 12:51
PROVIDERS: PCP Family Medicine; Referring Provider Orthopaedic Surgery Orthopaedic Surgery of the Spine; Visit Provider Orthopaedic Surgery Orthopaedic Surgery of the Spine
PROC: (CPT 22633; principal; 2021-03-03 13:15)
DX: M48.061 Spinal stenosis, lumbar region without neurogenic claudication (principal); M43.16 Spondylolisthesis, lumbar region; I10 Essential (primary) hypertension
CPT/HCPCS: 22633; 20939; 22853; 22840; 63047; 36415; 72100; 76000; 85014; 85018; 97161; 97166; 97530; 97535; C1776; C9290; J0171; J0360; J0690; J1100; J1170; J2405; J2704; J3010